=== PATIENT | male | born 1975 | race Caucasian/White ===

== ENCOUNTER 2017-02-01 15:41 | Emergency (ER) | payer BC ==
[2017-02-01 15:47] VITALS: BP 140/79; PULSE 60; RESP 18; TEMP 98.8
[2017-02-01] MEDS ORDERED: diphenhydrAMINE 25 MG CAP PO STA (15:55)
--- NOTE | 2017-02-01 15:59 | ED ---
General Adult HPI - General Chief complaint: Skin/Abscess/Foreign Body Stated complaint: Bee sting Time Seen by Provider: 02/01/17 15:52 Source: patient, RN notes reviewed Mode of arrival: ambulatory Limitations: no limitations - History of Present Illness Initial comments: 41-year-old male presents emergency per chief complaint of bee sting to the left arm. Patient states this happened when he was doing a golf swing. He did not see the insect. He has a history of an ALLERGIC reaction to bee sting he was concerned. He states he's had no difficulty in breathing no chest pain no complaints. He was concerned due to the insect bite in his doctor to little bit to the ER visit was playing again and so he is here. Patient has no complaints just a little irritation at the insect sting site. Patient denies any recent fever, chills, shortness of breath, chest pain, back pain, abdominal pain, nausea vomiting, numbness or tingling, dysuria or hematuria, constipation or diarrhea, headaches or visual changes, or any other current symptoms. - Related Data Allergies Allergy/AdvReac Type Severity Reaction Status Date / Time Penicillins Allergy Rash/Hives Verified 02/01/17 15:47 Review of Systems ROS Statement: Those systems with pertinent positive or pertinent negative responses have been documented in the HPI. ROS Other: All systems not noted in ROS Statement are negative. Past Medical History Past Medical History: No Reported History Additional Past Medical History / Comment(s): seasonal allergies History of Any Multi-Drug Resistant Organisms: None Reported Past Surgical History: No Surgical Hx Reported Past Psychological History: No Psychological Hx Reported Smoking Status: Never smoker Past Alcohol Use History: Occasional Past Drug Use History: None Reported General Exam - General Exam Comments Initial Comments: General: The patient is awake and alert, in no distress, and does not appear acutely ill. Neck: The neck is supple, there is no tenderness. Cardiovascular: There is a regular rate and rhythm. No murmur, rub or gallop is appreciated. Respiratory: Lungs are clear to auscultation, respirations are non-labored, breath sounds are equal. No wheezes, stridor, rales, or rhonchi. Musculoskeletal: Sensation intact with 2+ pulses throughout the left upper gaona. Fund motion of left elbow and left wrist. Patient does appear to be insect bite to the proximal second left forearm. Minimal swelling around the area. No redness. Neurological: CN II-XII intact, There are no obvious motor or sensory deficits. Coordination appears grossly intact. Speech is normal. Skin: Skin is warm and dry and no rashes or lesions are noted. Psychiatric: Normal mood and affect. Limitations: no limitations Course Vital Signs 02/01/17 15:44 Temperature 98.8 F Pulse Rate 60 Respiratory 18 Rate Blood Pressure 140/79 O2 Sat by Pulse 100 Oximetry Medical Decision Making - Medical Decision Making 41-year-old male presents for insect bites left arm. Since patient does not appear to be having any systemic reaction. There is a mild hive wearing the insect was. At this time we discussed Benadryl. Discussed return parameters and follow-up. He has been an hour since the sting with no applications. This time patient will be discharged home. He does have an EpiPen at home. All the questions have been answered. He'll be discharged. Disposition Clinical Impression: Insect bite of left arm Disposition: HOME SELF-CARE Condition: Stable Instructions: Insect Bite or Sting (ED) Additional Instructions: Please use medication as discussed. Please follow up with family doctor if symptoms have not improved over the next two days. Please return to the emergency room if your symptoms increase or worsen or for any other concerns. Referrals: Katarina Valencia MD [STAFF PHYSICIAN] - 1-2 days Time of Disposition: 16:06
== END 2017-02-01 16:21 | disposition home or self-care (01) ==
LOC: EC 15:41
DX: T63.441A Toxic effect of venom of bees, accidental (unintentional), initial encounter (principal); Z88.0 Allergy status to penicillin
CPT/HCPCS: 99282